=== PATIENT | male | born 1965 | race Caucasian/White ===

== ENCOUNTER 2024-09-11 17:10 | Emergency (ER) | payer OTHER, SELFPAY ==
--- NOTE | 2024-09-11 17:15 | DI.RAD.S_ITS ---
PROCEDURE: XR CHEST 1V INDICATIONS: chest pain TECHNIQUE: One view of the chest was acquired. COMPARISON: None. FINDINGS: Surgical changes and devices: None. Lungs and pleura: Lungs are clear. No pleural effusions or pneumothorax. Mediastinum: Mediastinal contours appear normal. Heart size is normal. Bones and chest wall: No suspicious bony lesions. Overlying soft tissues appear unremarkable. IMPRESSION: No acute cardiopulmonary abnormality is seen. Approved by: Adriano Vigil M.D. on 09/11/2024 at 17:50
[2024-09-11 17:16] VITALS: BP 134/75; PULSE 66; RESP 16; TEMP 36.7; O2SAT 100; BMI 25.1
--- NOTE | 2024-09-11 17:18 | EKG_ITS ---
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
[2024-09-11 17:39] LABS: Add Manual Diff / Slide Review NO; Basophils Absolute Auto 100 /uL (0-100); Basophils Percent Auto 0.9 % (0-2); Eosinophils Absolute Auto 300 /uL (0-450); Eosinophils Percent Auto 4.8 % (2-4); Hematocrit 43.2 % (41-53); Hemoglobin 14.8 g/dL (13.5-17.5); Lymphocytes Absolute Auto 1900 /uL (1100-4500); Lymphocytes Percent Auto 27.9 % (25-40); Mean Corpuscular HGB Conc 34.3 % (30-36); Mean Corpuscular Hemoglobin 31.9 PG (26-34); Monocytes Absolute Auto 500 /uL (0-900); Monocytes Percent Auto 7.5 % (3-14); Neutrophils Absolute Auto 3900 /uL (1500-7000); Neutrophils Percent Auto 58.9 % (50-75); Platelet Count 218 X10^3/uL (150-400); Red Blood Cell Count 4.64 X10^6/uL (4.5-5.9); White Blood Cell Count 6.7 X10^3/uL (4.5-11.0)
[2024-09-11 17:54] LABS: Prothrombin Time 11.3 SECONDS (9.4-12.5)
[2024-09-11 17:57] LABS: PTT Partial Thromboplastin Tim 33 SECONDS (25.1-36.5)
[2024-09-11 17:58] LABS: Alanine Aminotransferase 27 IU/L (<50); Albumin 4.5 g/dL (3.5-5.0); Albumin Globulin Ratio 1.5 (1.0-2.8); Alkaline Phosphatase 53 U/L (38-126); Aspartate Aminotransferase 46 IU/L (17-59); BUN Creatinine Ratio 22.8 (6-22); Bilirubin Total 0.7 mg/dL (0.2-1.3); Blood Urea Nitrogen 23 mg/dL (9-20); Calcium 9.4 mg/dL (8.4-10.2); Carbon Dioxide 30 mmol/L (22-32); Chloride 102 mmol/L (98-107); Creatine Kinase 135 U/L (55-170); Estimated Glomerular Filt Rate > 60 mL/min (>60); Globulin 3.1 g/dL (1.7-4.1); Glucose 108 mg/dL (80-110); HEMOLYSIS 39 (0-50); Lipase 139 U/L (23-300); Potassium 4.2 mmol/L (3.4-5.1); Sodium 138 mmol/L (137-145); Total Protein 7.6 g/dL (6.3-8.2)
[2024-09-11 18:09] LABS: NT-proBNP (BNP-Adult 18+) 120 pg/mL (<125); Troponin I < 0.012 ng/mL (0.01-0.034)
[2024-09-11 19:40] VITALS: PULSE 60; O2SAT 100
[2024-09-11 19:42] VITALS: BP 135/78; PULSE 55; RESP 13; O2SAT 100
[2024-09-11 20:00] VITALS: BP 130/78; PULSE 61; RESP 15; O2SAT 98
--- NOTE | 2024-09-11 20:03 | ED_ITS ---
HPI - Chest Pain General Chief Complaint: Chest Pain Stated Complaint: chest discomfort Time Seen by Provider: 09/11/24 19:47 Source: patient and family Mode of arrival: Ambulatory Limitations: no limitations History of Present Illness HPI narrative: 59-year-old male presents for intermittent left-sided chest discomfort for 4 days. Patient states that he was overall very active and healthy and has exercise multiple times over the weekend without exacerbation of his chest pains. Pain is described as a discomfort, patient can not identify exacerbating or alleviating factors. Reports history of heart disease in his father at an elderly age, denies other history of heart disease. Denies history of hypertension, hyperlipidemia, diabetes. States that he quit smoking over 30 years ago. Currently pain-free. Related Data Allergies Allergy/AdvReac Type Severity Reaction Status Date / Time No Known Drug Allergies Allergy Verified 09/11/24 17:14 Patient History Substance Use Type: does not use Exam Initial Vital Signs Initial Vital Signs: Vital Signs Temperature 98.1 F 09/11/24 17:16 Pulse Rate 66 09/11/24 17:16 Respiratory Rate 16 09/11/24 17:16 Blood Pressure 134/75 09/11/24 17:16 Pulse Oximetry 100 09/11/24 17:16 Oxygen Delivery Method Room Air 09/11/24 17:16 Const: Awake, alert, no acute distress, nontoxic appearing Cardiac: regular rate, regular rhythm RESP: unlabored, clear bilaterally, no wheezing Skin: Warm, Dry, intact, no rashes Neuro: AO x3, CN II-XII grossly intact, moves all extremities Course Orders Ordered: ED Orders 09/11/24 17:15 XR chest 1V Stat EKG-12 Lead Stat 09/11/24 17:25 Complete Blood Count AUTO DIFF Stat Comprehensive Metabolic Panel Stat Lipase Stat Magnesium Stat NT-proBNP (BNP-Adult 18+) Stat PTT Partial Thromboplastin [place] Stat Prothrombin Time INR Stat Troponin & CK Cardiac Panel Stat 09/11/24 20:05 Troponin I Stat Discontinued Medications Aspirin (Aspirin 81 Mg Chew Tab) 324 mg PO NOW ONE Stop: 09/11/24 17:16 Last Admin: 09/11/24 20:11 Dose: 324 mg Documented By: GEN Vital Signs Vital signs: Vital Signs - 8 hr 09/11/24 19:40 09/11/24 19:42 09/11/24 19:42 Temperature Pulse Rate 60 55 L Respiratory Rate 13 Blood Pressure 135/78 Pulse Oximetry 100 100 09/11/24 20:00 09/11/24 20:00 09/11/24 20:30 Temperature Pulse Rate 61 56 L Respiratory Rate 15 18 Blood Pressure 130/78 Pulse Oximetry 98 99 09/11/24 20:30 09/11/24 20:59 Temperature 98.3 F Pulse Rate Respiratory Rate 17 Blood Pressure 125/80 Pulse Oximetry MDM - Chest Pain Differential Diagnosis Differential diagnosis: Likely atypical chest pain, costochondritis and chest pain Lab Data 09/11/24 17:25 09/11/24 17:25 Labs: Lab Results 09/11/24 09/11/24 Range/Units 17:25 20:05 WBC 6.7 (4.5-11.0) X10^3/uL RBC 4.64 (4.5-5.9) X10^6/uL Hgb 14.8 (13.5-17.5) g/dL Hct 43.2 (41-53) % MCV 93.0 (80-100) fL MCH 31.9 (26-34) PG MCHC 34.3 (30-36) % RDW 13.0 (11.6-14.8) % Plt Count 218 (150-400) X10^3/uL Neut % (Auto) 58.9 (50-75) % Lymph % (Auto) 27.9 (25-40) % [place] % (Auto) 7.5 (3-14) % Eos % (Auto) 4.8 H (2-4) % Baso % (Auto) 0.9 (0-2) % Neut # (Auto) 3900 (8673-9914) /uL Lymph # (Auto) 1900 (3381-3977) /uL [place] # (Auto) 500 (0-900) /uL Eos # (Auto) 300 (0-450) /uL Baso # (Auto) 100 (0-100) /uL PT 11.3 (9.4-12.5) SECONDS INR 1.0 (0.9-1.3) APTT 33 (25.1-36.5) SECONDS Sodium 138 (137-145) mmol/L Potassium 4.2 (3.4-5.1) mmol/L Chloride 102 (98-107) mmol/L Carbon Dioxide 30 (22-32) mmol/L BUN 23 H (9-20) mg/dL Creatinine 1.01 (0.66-1.25) mg/dL Estimated GFR > 60 (>60) mL/min BUN/Creatinine Ratio 22.8 H (6-22) Glucose 108 (80-110) mg/dL Calcium 9.4 (8.4-10.2) mg/dL Magnesium 2.0 (1.6-2.3) mg/dL Total Bilirubin 0.7 (0.2-1.3) mg/dL AST 46 (17-59) IU/L ALT 27 (<50) IU/L Alkaline Phosphatase 53 (38-126) U/L Total Creatine Kinase 135 (55-170) U/L Troponin I < 0.012 < 0.012 (0.01-0.034) ng/mL NT-Pro-B Natriuret Pep 120 (<125) pg/mL Total Protein 7.6 (6.3-8.2) g/dL Albumin 4.5 (3.5-5.0) g/dL Globulin 3.1 (1.7-4.1) g/dL Albumin/Globulin Ratio 1.5 (1.0-2.8) Lipase 139 (23-300) U/L Imaging Data Chest x-ray: Radiologist's Impression: PROCEDURE: XR CHEST 1V INDICATIONS: chest pain TECHNIQUE: One view of the chest was acquired. COMPARISON: None. FINDINGS: Surgical changes and devices: None. Lungs and pleura: Lungs are clear. No pleural effusions or pneumothorax. Mediastinum: Mediastinal contours appear normal. Heart size is normal. Bones and chest wall: No suspicious bony lesions. Overlying soft tissues appear unremarkable. IMPRESSION: No acute cardiopulmonary abnormality is seen. Approved by: Adriano Vigil M.D. on 09/11/2024 at 17:50 ECG Data Attestation: I personally reviewed and interpreted this ECG as follows: Prior ECG tracings: not available for review Interpretation: Normal sinus rhythm at 61 beats per minute. Normal [place]. No ST T wave changes MDM Narrative Medical decision making narrative: Well-appearing patient with several days of intermittent chest pains. Currently pain-free. Heart score 1 based on patient's age. He states that his father did have heart disease, however it was diagnosed at a later age in life, however he was not remember the exact age. EKG normal sinus rhythm without any concerning ischemic findings. Chest x-ray negative for acute process. Troponins undetectable x2. Patient informed of all lab and imaging findings. He has established PCP at the [facility] in [place]. He was advised to follow up with PCP. Cardiology referral number provided. ED return precautions discussed. Discharge Plan Departure Patient Disposition: Home Clinical Impression: Chest pain Instructions: DI for Chest Pain Activity Restrictions/Additional Instructions: Your blood work, EKG, and chest x-ray today were reassuring. I do not know the cause of your chest pain at this time but it does not appear to be an ongoing heart attack. Follow up with your primary care doctor for additional testing. 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 If you have new or worsening chest pains, shortness of breath, excessive sweatiness, or any other concerning symptoms please come back to the ER for repeat evaluation. Referrals: Braden Jon MD [Physician] - Miscellaneous,MD Fidelina [Primary Care Provider] - Stand Alone Forms: Patient Portal/API/Survey
[2024-09-11] MEDS: ASPIRIN 81 MG CHEW TAB 324 MG PO (20:11)
[2024-09-11 20:30] VITALS: BP 125/80; PULSE 56; RESP 18; O2SAT 99
[2024-09-11 20:42] LABS: Troponin I < 0.012 ng/mL (0.01-0.034)
[2024-09-11 20:59] VITALS: RESP 17; TEMP 36.8
== END 2024-09-11 21:00 | disposition home or self-care (01) ==
PROVIDERS: Emergency Medicine; Emergency Provider Emergency Medicine
DX: R07.9 Chest pain, unspecified (principal); Z82.49 Family history of ischemic heart disease and other diseases of the circulatory system
CPT/HCPCS: 36415; 71045; 80053; 82550; 83690; 83735; 83880; 84484; 85025; 85610; 85730; 93005; 93010; 99284